=== PATIENT | male | born 1960 | race Caucasian/White ===

== ENCOUNTER 2022-02-25 04:27 | Day surgery (SDC) | payer OTHER, SELFPAY ==
--- NOTE | 2022-02-24 07:24 | P.HP_ITS ---
History of Present Illness History of Present Illness Consent: Risks, benefits, and alternatives have been discussed and questions answered. Patient agrees to proceed with procedure. Chief complaint: ureteral stone Narrative: Qamar Lebron is a 61 year old male who recently underwent left ESWL for a 7 mm renal calculus. When seen in follow-up he was experiencing left flank pain imaging demonstrated not only a residual 4-5 mm left distal ureteral fragment bu t a new nonobstructing 3 mm right distal ureteral calculus. After discussion of therapy options he has elected to proceed with endoscopic extraction of both stones with the understanding this may require stent placement on 1 or both sides. These were the risks including, but not limited to, adverse cardiopulmonary events, ureteral injury, stent placement and hematuria. Review of Systems Cardiovascular: Cardiovascular: Denies chest pain, Denies lightheadedness, Denies palpitations and Denies dyspnea Respiratory: Respiratory: Denies dyspnea Gastrointestinal: Gastrointestinal: Denies diarrhea, Denies nausea and Denies vomiting Genitourinary: Genitourinary: Denies hematuria and Denies dysuria Endocrine: Endocrine: Denies palpitations Assessment and Plan Assessment and plan (1) Bilateral ureteral calculi: Code(s): N20.1 - Calculus of ureter Status: Acute Assessment and Plan: * cystoscopy with bilateral ureteroscopy and stone extraction, possible bilateral retrograde pyelography, laser lithotripsy and stent placement
[2022-02-24 08:13] VITALS: BMI 29.0
--- NOTE | 2022-02-24 08:19 | PC.NURSE ---
Report to the Outpatient Waiting Room, entrance under the green pavilion located off [facility], at time _1130 on date _02/25/22. OR Time: _1330 _. - You and your visitor will be asked a series of questions to screen for COVID 19 for your protection. - Only one visitor is allowed at this time. - The patient visitor is requested to leave or wait in car when not with patient. - A mask is required within the hospital. Patients may have clear liquids (water, carbonated beverages, clear teas, apple juice) until 3 hours prior to surgery with a maximum of 20 ounces. - No food from midnight until time of surgery - Infants may have breast milk until 4 hours before surgery, infant formula 6 hours prior to surgery. - Children will be allowed to drink immediately following surgery. If applicable, please bring a bottle or sippy cup to assist with drinking. Juice, water, soda, and popsicles are readily available. For infants on formula, please bring formula the day of surgery. Pacifiers are allowed. Take the following medications with a SIP of water the morning of surgery: NONE Medications to discontinue per physician PAIN OR NAUSEA PILL IF NEEDED Date to take last dose Please no make-up, nail tunisian, hairspray, perfume, deodorant, or body powder the day of surgery. No jewelry (including any body piercings) or valuables the day of surgery, leave them at home. Please take a shower or bath the night before, or the morning of, surgery with an antibacterial soap. Wear comfortable, loose fitting clothing. Children are encouraged to wear pajamas. - Jewelry must be removed prior to entering the operating room. Rings and piercings that are not removed may be cut off. - The hospital will not accept responsibility for valuables. - Please leave all valuables, including medications, at home the day of surgery. If you are going home after surgery, a licensed port c[place] a driver must drive you home. - NO public transportation without another adult. - We recommend that an adult stay with you for 24 hours following discharge. - We also recommend that you do not drive, make important decision, drink alcoholic beverages, or take any drugs that were not prescribed by your health care provider for at least 24 hours after your discharge time. For Pediatric surgeries, we recommend two adults accompany the child home (only one inside the building at this time). Follow any additional instructions given to you from your surgeon. If you or anyone in your household have experienced Covid symptoms in the past week, please notify your surgeon or the nurse liaison at the phone number below for possible testing. Telephone instructions given to ____PATIENT and asked if any additional questions and then verbalized understanding. Patient advised to call surgeon office or pre surgery nurse liaison [phone] if any additional questions.
[2022-02-25] VITALS (7 sets, daily range): BP systolic 129–153; BP diastolic 69–90; PULSE 72–82; RESP 12–16; TEMP 36.5–36.7; O2SAT 96–100
--- NOTE | ~2022-02-25 | XR_ITS ---
EXAMINATION: XR stent kub - surgery DATE: 02/25/2022 13:53 INDICATION: Right-sided renal stone extraction and left-sided internal ureteral stent placement.. TECHNIQUE: 2 fluoroscopic images of the abdomen and pelvis were obtained during procedure performed annmarie Braden. Radiologist was not present for the imaging or procedure. The amount of fluoroscopy michael e used during this procedure was 1.2 minutes. COMPARISON: None. FINDINGS: Left internal ureteral stent with formed loop projecting over the expected location of the left renal pelvis and the bladder. No evident urolithiasis. Normal bowel gas pattern. Density in the right uppe r quadrant potentially representing cholecystectomy clips. IMPRESSION: 1. Left internal ureteral stent in expected position. See procedure note for further detail. Reviewed, dictated and finalized at location A. IMPRESSION: 1. Left internal ureteral stent in expected position. See procedure note for fu rther detail.
--- NOTE | 2022-02-25 06:57 | WPDHPUPDATE1 ---
History and Physical Update Update Date/Time: 02/25/22 06:57 History and Physical has been reviewed, including an updated exam of the patient. There are NO changes in the patient's condition. Risks, benefits, and alternatives have been discussed and questions answered. Patient agrees to proceed with procedure.
--- NOTE | 2022-02-25 12:35 | ECG_ITS ---
Measurements Intervals Dietrich Rate: 66 P: 7 CT: 186 QRS: -20 QRSD: 102 T: 14 QT: 362 QTc: 381 Interpretive Statements SINUS RHYTHM WITHIN NORMAL LIMITS NO PREVIOUS ECG AVAILABLE FOR COMPARISON Electronically Signed On 02-25-2022 14:45:06 CDT by Baron Coley M.D.
--- NOTE | 2022-02-25 12:53 | WPDANESEPPF ---
Anes - Initial Pre Proc Eval Procedure: Operation Date: 02/25/22 13:30 Proposed Procedures p Cystoscopy, Bilateral Ureteroscopy, Bilateral Retrograde Pyelogram, Bilateral Ureteral Stent Placement, Bilateral Holmium Laser Lithotripsy, with Stone Manipulation - Roly Braden MD Date/Time: 02/25/22 12:53 Surgeon: Roly Braden MD Pre Op Diagnosis: ureteral stone Patient Data Age: 61 Gender: M Height: 1.75 m Weight: 89 kg Allergies Allergy/AdvReac Type Severity Reaction Status Date / Time morphine Allergy Hives Verified 02/25/22 12:43 Home Medications Medication Instructions Recorded Confirmed Type aspirin 81 mg tablet 81 mg PO DAILY 02/24/22 02/24/22 History ezetimibe 10 mg tablet 10 mg PO HS 02/24/22 02/25/22 History fenofibrate 160 mg tablet 1 tablet PO HS 02/24/22 02/25/22 History hydrocodone 10 mg-acetaminophen 1 tablet PO PRN PRN Pain 02/24/22 02/25/22 History 325 mg tablet ketorolac 10 mg tablet 1 tablet PO PRN PRN Pain 02/24/22 02/25/22 History ondansetron 4 mg disintegrating 1 tablet PO PRN PRN Nausea 02/24/22 02/25/22 History tablet rosuvastatin 40 mg tablet 1 tablet PO HS 02/24/22 02/25/22 History tamsulosin 0.4 mg capsule 1 cap PO PRN PRN Bladder Spasms 02/24/22 02/25/22 History zolpidem 10 mg tablet 1 tablet PO HS 02/24/22 02/25/22 History Patient hx anesthesia problems: none Family hx anesthesia problems: none Results Review: All pre-operative results and documents have been reviewed as part of the pre-operative evaluation. [facility] Past Medical History Medical History (Updated 02/25/22 @ 12:54 by Bonilla Verdin MD) Bilateral ureteral calculi Hyperlipidemia Overweight (BMI 25.0-29.9) Social History Social History Smoking status: Never smoker Alcohol intake: current Drinks per week: 1 Substance use: never Living arrangements: with family Anes - Eval Final PreProcedure Day of Procedure 02/25/22 12:53 Patient weight: overweight Heart: regular rate and rhythm Lungs: clear to auscultation and normal air movement Airway: Mallampati scale class II Neurological: alert and oriented Last oral intake: >/= 8 hours ASA classification: II Emergent: no Anesthetic plan: proceed Anesthesia type and monitoring: general Results Review: All pre-operative results and documents have been reviewed as part of the pre-operative evaluation. Informed Consent: The patient's anesthetic plan and its attendant risks and benefits were discussed with the patient/family/POA. Questions were solicited and answers provided to the satisfaction of the patient/family/POA.
[2022-02-25] MEDS: LACTATED RINGERS 1,000 ML 30 ML IV CONT (13:00)
[2022-02-25] MEDS: SCOPOLAMINE 1.5 MG PATCH TRANSDERM (13:06)
[2022-02-25] MEDS: ceFAZolin 2 GM/D5W 50 ML 2 GM/50 ML BAG IVPB (13:16)
--- NOTE | 2022-02-25 13:54 | W.PM.PROC2 ---
Procedure Note - Detailed Date of Procedure 02/25/22 Pre-op Diagnosis Bilateral ureteral stones Post-op Diagnosis Same Procedure Performed 1. Cystoscopy, right ureteroscopy with stone extraction 2. left ureteroscopy, laser lithotripsy with stone extraction, stent placement Surgeon Roly Braden MD Description of Procedure The patient was brought to the operative suite where he is prepped and draped in a routine sterile fashion while in the dorsal lithotomy position after the uneventful induction of a general LMA anesthetic. A 19F rigid cystoscope was placed in the bladder. There are no urethral strictures. His prostatic urethra measures, approximately, 1.5cm with no median lobe enlargement. The bladder mucosa was endoscopically normal without hyperemia or neoplasm. There was a single, orthotopic ureteral orifice bilaterally. A 0.035 glidewire was advanced into the right renal pelvis under fluoroscopy. The distal ureter was dilated with an 8F/10F ureteral dilator. Ureteroscopy was undertaken with a short, tapered, semi-rigid ureteroscope and the stone was extracted with ease using a 1.9F Escape disposable stone basket. Due to the ease of this manipulation I opted not to place a ureteral stent on the right side. After dilating the left ureter with an 8 F 10 F dilator over a 0.035 in glidewire identified an impacted 7 mm left distal ureteral calculus. This required laser lithotripsy with a 273 micron laser fiber. All little stone fragments were removed and I did place a 4.8 F variable length left ureteral stent.The patient's bladder was emptied and was taken to the recovery room having tolerated this procedure well. Drains Yes Pathology None sent Condition Stable Disposition PACU
[2022-02-25] MEDS: KETOROLAC 30 MG/ML VIAL (*BKC) IV PUSH (14:12)
== END 2022-02-25 15:49 | disposition home or self-care (01) ==
PROVIDERS: Visit Provider Urology
PROC: (CPT 52352; principal; 2022-02-25 13:30)
DX: N20.1 Calculus of ureter (principal); Z79.82 Long term (current) use of aspirin; E78.5 Hyperlipidemia, unspecified
CPT/HCPCS: 52352; 52356; 82365; 88300; 93005; A9270; C1769; C2617; J0690; J1100; J1885; J2250; J2405; J2704; J3010; J7120

== ENCOUNTER 2023-06-09 00:29 | Day surgery (SDC) | payer OTHER, SELFPAY ==
[2023-06-05 14:30] VITALS: BMI 28.8
--- NOTE | 2023-06-05 14:34 | PC.NURSE ---
Report to the Outpatient Waiting Room, entrance under the green pavilion located off [facility], at time 8:30 on date 06/09/23. Planned Procedure Time: 10:30. Time changes happen often and if your time is changed the preop area will call you the afternoon before. - You and your visitor will be asked to self-screen and do not enter if you have any COVID symptoms. - A mask is optional within the hospital at this time. Patients may have clear liquids (water, carbonated beverages, clear teas, apple juice) until 3 hours prior to surgery (7:30) with a maximum of 20 ounces. - No food from midnight until time of surgery Take the following medications with a SIP of water the morning of surgery: NONE DO NOT STOP ANY OF YOUR OTHER PRESCRIPTION MEDICATIONS PRIOR TO SURGERY ?EXCEPT THE FOLLOWING Medications to discontinue per physician: ASPIRIN Date to take last dose: PT HAS ALREADY STOPPED Please no make-up, nail luxembourgish, hairspray, perfume, deodorant, or body powder the day of surgery. No jewelry (including any body piercings) or valuables the day of surgery, leave them at home. Please take a shower or bath the night before, or the morning of, surgery with an antibacterial soap. Wear comfortable, loose fitting clothing. - Jewelry must be removed prior to entering the operating room. Rings and piercings that are not removed may be cut off. - The hospital will not accept responsibility for valuables. - Please leave all valuables, including medications, at home the day of surgery. If you are going home after surgery, a licensed milk tanker driver must drive you home. - NO public transportation without another adult if you receive anesthesia. - We recommend that an adult stay with you for 24 hours following discharge. - We also recommend that you do not drive, make important decision, drink alcoholic beverages, or take any drugs that were not prescribed by your health care provider for at least 24 hours after your discharge time. Follow any additional instructions given to you from your surgeon. If you or anyone in your household have experienced Covid symptoms in the past week, please notify your surgeon or the nurse liaison at the phone number below for possible testing. Telephone instructions given to PT - KYLE OWENS and asked if any additional questions and then verbalized understanding. Patient advised to call surgeon office or pre surgery nurse liaison [phone] if any additional questions.
[2023-06-09] VITALS (7 sets, daily range): BP systolic 112–147; BP diastolic 61–92; PULSE 63–76; RESP 14–16; TEMP 36.4; O2SAT 98–100; BMI 29.5
--- NOTE | ~2023-06-09 | XR_ITS ---
XR abdomen/kub 1V 06/09/2023 08:37 Indication: Preop ESWL left renal stone. Procedure: KUB Comparison: No prior studies for comparison. Findings: Bowel gas pattern nonobstructive. There is a left renal stone measuring approximately 9 mm, presumably in the renal pelvis. There are cholecystectomy clips. Bowel gas pattern nonobstructive. T here is a left pelvic phlebolith. No acute osseous abnormality. Impression: 1: Left nephrolithiasis. Reviewed, dictated and finalized at location B. Impression: 1: Left nephrolithiasis.
--- NOTE | 2023-06-09 09:19 | WPDHPUPDATE1 ---
History and Physical Update Update Date/Time: 06/09/23 09:19 History and Physical has been reviewed, including an updated exam of the patient. There are NO changes in the patient's condition. Risks, benefits, and alternatives have been discussed and questions answered. Patient agrees to proceed with procedure. Proceed with left ureteral lithotripsy
[2023-06-09 09:23] LABS: Prothrombin Time 13.3 Seconds (11.1-14.7)
[2023-06-09 09:24] LABS: Partial Thromboplastin Time 28.2 SECONDS (22.3-36.8)
--- NOTE | 2023-06-09 09:58 | WPDANESEPPF ---
Anes - Initial Pre Proc Eval Procedure: Operation Date: 06/09/23 10:30 Proposed Procedures p Left Extracorporeal Shock Wave Lithotripsy, - Garry Medrano MD s Possible Cystoscopy, Retrograde Pyelogram - Garry Medrano MD Date/Time: 06/09/23 09:58 Surgeon: Garry Medrano MD Pre Op Diagnosis: Kidney stones, ureteral stones Patient Data Age: 63 Gender: M Height: 1.75 m Weight: 90.9 kg Allergies Allergy/AdvReac Type Severity Reaction Status Date / Time morphine Allergy Hives Verified 06/09/23 09:27 Home Medications Medication Instructions Recorded Confirmed Type aspirin 81 mg tablet 81 mg PO DAILY 02/24/22 06/09/23 History ezetimibe 10 mg tablet 10 mg PO HS 02/24/22 06/09/23 History fenofibrate 160 mg tablet 1 tablet PO HS 02/24/22 06/09/23 History rosuvastatin 40 mg tablet 1 tablet PO HS 02/24/22 06/09/23 History zolpidem 10 mg tablet 1 tablet PO HS 02/24/22 06/09/23 History Laboratory Tests 06/09/23 08:54 PT 13.3 Seconds (11.1-14.7) INR 1.0 APTT 28.2 SECONDS (22.3-36.8) Patient hx anesthesia problems: none Family hx anesthesia problems: none Results Review: All pre-operative results and documents have been reviewed as part of the pre-operative evaluation. [facility] Past Medical History Medical History Bilateral ureteral calculi Hyperlipidemia Overweight (BMI 25.0-29.9) Surgical History Surgical History (Updated 06/09/23 @ 09:58 by Angel Frye MD) Hx of cystoscopy Social History Social History Smoking status: Never smoker Alcohol intake: current Drinks per week: 1 Alcohol use details: RARE Substance use: never Substance use type: does not use Living arrangements: with family Spiritual care concerns: No Anes - Eval Final PreProcedure Day of Procedure 06/09/23 09:58 Patient weight: overweight Heart: regular rate and rhythm Lungs: clear to auscultation Airway: Mallampati scale class II Neurological: alert and oriented Last oral intake: >/= 8 hours ASA classification: II Emergent: no Anesthetic plan: proceed Anesthesia type and monitoring: general LMA and standard monitoring Results Review: All pre-operative results and documents have been reviewed as part of the pre-operative evaluation. Informed Consent: The patient's anesthetic plan and its attendant risks and benefits were discussed with the patient/family/POA. Questions were solicited and answers provided to the satisfaction of the patient/family/POA.
[2023-06-09] MEDS: ceFAZolin 2 GM/D5W 50 ML 2 GM/50 ML BAG IVPB (10:30)
--- NOTE | 2023-06-09 11:08 | W.PM.PROC2 ---
Procedure Note - Detailed Date of Procedure 06/09/23 Pre-op Diagnosis LEFT URETERAL CALCULUS Post-op Diagnosis Same Procedure Performed LITHOTRIPSY OF LEFT URETERAL CALCULUS Surgeon Garry Medrano MD Anesthesia General Description of Procedure PATIENT IS TAKEN THE OPERATIVE SUITE CORRECTLY IDENTIFIED. ONCE ANESTHESIA WAS OBTAINED THE STONE WAS LOCALIZED IN BOTH PLANES. THREE THOUSAND SHOCKS WERE GIVEN THE STONE. PATIENT TOLERATED PROCEDURE WELL WITHOUT ANY COMPLICATIONS TAKEN RECOVERY STABLE CONDITION. HE WILL FOLLOW-UP IN 7-10 DAYS WITH KUB. PLEASE SEND A COPY THIS OP NOTE TO MY OFFICE Estimated Blood Loss 0 Drains No Packing No Pathology None sent Complications No immediate complications Condition Stable Disposition PACU
[2023-06-09] MEDS: LACTATED RINGERS 1,000 ML 30 ML IV CONT (11:21)
[2023-06-09] MEDS: fentaNYL CITRATE INJ (*CRX) 100 MCG/2 ML VIAL 25 MCG IV PUSH ×4 (11:58→12:08)
[2023-06-09] MEDS: KETOROLAC 30 MG/ML VIAL (*BKC) IV PUSH (12:14)
[2023-06-09] MEDS: oxyCODONE HCL (*CRX) 5 MG TAB IR PO (12:45)
== END 2023-06-09 13:16 | disposition home or self-care (01) ==
PROVIDERS: Visit Provider Urology
PROC: (CPT 50590; principal; 2023-06-09 10:30)
DX: N20.0 Calculus of kidney (principal); E78.00 Pure hypercholesterolemia, unspecified; Z79.82 Long term (current) use of aspirin; Z80.0 Family history of malignant neoplasm of digestive organs; Z87.442 Personal history of urinary calculi
CPT/HCPCS: 50590; 36415; 74018; 85610; 85730; 87086; A9270; J0690; J1100; J1885; J2250; J2405; J2704; J3010; J7120